=== PATIENT | female | born 1990 | race Caucasian/White ===

== ENCOUNTER 2017-12-01 08:45 | Emergency (ER) | payer MEDICAID ==
[2017-12-01] MEDS ORDERED: Bupivacaine 0.5% 10 ML SDV INJECT ONE (09:10)
--- NOTE | 2017-12-01 09:10 | EDM.PDOC ---
ED HPI GENERAL MEDICAL PROBLEM - General Chief Complaint: Skin Complaint Stated Complaint: ABCESS UNDER ARM PITS Time Seen by Provider: 12/01/17 08:47 Source of Information: Reports: Patient History Limitations: Reports: No Limitations - History of Present Illness INITIAL COMMENTS - FREE TEXT/NARRATIVE: History of present illness: []Patient has multiple lesions under both armpits and one on her neck. She admits to injecting heroin but she has not injected in over a week. She denies any shortness of breath, chest pain, fevers, chills, nausea or vomiting Review of systems: As per history of present illness and below otherwise all systems reviewed and negative. Past medical history: As per history of present illness and as reviewed below otherwise noncontributory. Surgical history: As per history of present illness and as reviewed below otherwise noncontributory. Social history: No reported history of drug or alcohol abuse. Family history: As per history of present illness and as reviewed below otherwise noncontributory. Physical exam: General: Well developed, well nourished in NAD HEENT: Atraumatic, normocephalic, pupils reactive, negative for conjunctival pallor or scleral icterus, mucous membranes moist, throat clear, neck supple, right neck has track tabor and area of superficial erythema, tenderness over the external jugular, nontender, trachea midline. Lungs: Clear to auscultation, breath sounds equal bilaterally, chest nontender. Heart: S1S2, regular, negative for clicks, no audible murmurs noted Abdomen: Soft, nondistended, nontender. Negative for masses or hepatosplenomegaly. Negative for costovertebral tenderness. Pelvis: Stable nontender. Genitourinary: Deferred. Rectal: Deferred. Extremities: Bilateral axilla have multiple lesions of varying size that have induration, erythema and tenderness. The right axilla lesions show no signs of fluctuance the left axilla has one lesion approximately 3 cm x 3 cm that is erythematous and fluctuant. negative for cords or calf pain. Neurovascular unremarkable. Neuro: Awake, alert, oriented. Cranial nerves II through XII unremarkable. Cerebellum unremarkable. Motor and sensory unremarkable throughout. Exam nonfocal. Diagnostics: [] Therapeutics: []I&D left axillary abscess Impression: []IVDA, heroin abuse, multiple skin abscesses Plan: []Bactrim twice a day, diclofenac follow-up with PMD Definitive disposition and diagnosis as appropriate pending reevaluation and review of above. bialteral axillia Pain Score (Numeric/FACES): 5 - Related Data Allergies Allergy/AdvReac Type Severity Reaction Status Date / Time No Known Allergies Allergy Verified 12/01/17 08:56 Home Meds: Home Meds Diclofenac Sodium [Voltaren] 75 mg PO BIDMEALS PRN #20 tab.cr 12/01/17 [Rx] Dicloxacillin 500 mg PO QID #40 cap 12/01/17 [Rx] Sulfamethoxazole/Trimethoprim [Bactrim Ds Tablet] 1 each PO BID #20 tablet 12/01 [Rx] Past Medical History HEENT History: Reports: None Cardiovascular History: Reports: None Respiratory History: Reports: None Gastrointestinal History: Reports: None Genitourinary History: Reports: None 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: Musculoskeletal History: Reports: None Neurological History: Reports: None Psychiatric History: Reports: None Endocrine/Metabolic History: Reports: None Hematologic History: Reports: None Immunologic History: Reports: None Oncologic (Cancer) History: Reports: None Dermatologic History: Reports: Other (See Below) Other Dermatologic History: abscess - Infectious Disease History Infectious Disease History: Reports: Chicken Pox - Past Surgical History Head Surgeries/Procedures: Reports: None HEENT Surgical History: Reports: None Cardiovascular Surgical History: Reports: None Respiratory Surgical History: Reports: None GI Surgical History: Reports: None Female Surgical History: Reports: Section Endocrine Surgical History: Reports: None Neurological Surgical History: Reports: None Musculoskeletal Surgical History: Reports: None Oncologic Surgical History: Reports: None Dermatological Surgical History: Reports: None Social & Family History - Family History Family Medical History: Noncontributory - Tobacco Use Smoking Status *Q: Current Every Day Smoker Years of Tobacco use: 2 Packs/Tins Daily: 0.5 - Caffeine Use Caffeine Use: Reports: Soda - Recreational Drug Use Recreational Drug Use: No ED ROS GENERAL - Review of Systems Review Of Systems: ROS reveals no pertinent complaints other than HPI. ED EXAM, SKIN/RASH Exam: See Below (See history of present illness) Course - Vital Signs Last Recorded V/S: Last Vital Signs Temp 98.5 F 12/01/17 08:57 Pulse 100 12/01/17 08:57 Resp 18 12/01/17 08:57 BP 120/76 12/01/17 08:57 Pulse Ox 96 12/01/17 08:57 - Orders/Labs/Meds Meds: Medications Discontinued Medications Generic Name Dose Route Start Last Admin Trade Name Heavenly PRN Reason Stop Dose Admin Bupivacaine HCl 10 ml 12/01/17 09:10 12/01/17 09:16 Sensorcaine-Mpf 0.5% INJECT 12/01/17 09:11 10 ml ONETIME ONE Administration Lidocaine HCl 5 ml 12/01/17 09:10 12/01/17 09:16 Xylocaine-Mpf 1% INJECT 12/01/17 09:11 5 ml ONETIME ONE Administration Departure - Departure Time of Disposition: 09:36 Disposition: Home, Self-Care 01 Condition: Good Clinical Impression: Hidradenitis suppurativa of left axilla, Hidradenitis suppurativa of right axilla, Heroin abuse, Intravenous drug abuse Clinical Impression: (Ruled Out): IVDA (intravenous drug abuse) complicating - Discharge Information *PRESCRIPTION DRUG MONITORING PROGRAM REVIEWED*: No Prescriptions: Diclofenac Sodium [Voltaren] 75 mg PO BIDMEALS PRN #20 tab.cr PRN Reason: Pain Dicloxacillin 500 mg PO QID #40 cap Sulfamethoxazole/Trimethoprim [Bactrim Ds Tablet] 1 each PO BID #20 tablet Referrals: PCP,None [Primary Care Provider] - Forms: ED Department Discharge Additional Instructions: The following information is given to patients seen in the emergency department who are being discharged to home. This information is to outline your options for follow-up care. We provide all patients seen in our emergency department with a follow-up referral. The need for follow-up, as well as the timing and circumstances, are variable depending upon the specifics of your emergency department visit. If you don't have a primary care physician on staff, we will provide you with a referral. We always advise you to contact your personal physician following an emergency department visit to inform them of the circumstance of the visit and for follow-up with them and/or the need for any referrals to a consulting specialist. The emergency department will also refer you to a specialist when appropriate. This referral assures that you have the opportunity for follow-up care with a specialist. All of these measure are taken in an effort to provide you with optimal care, which includes your follow-up. Under all circumstances we always encourage you to contact your private physician who remains a resource for coordinating your care. When calling for follow-up care, please make the office aware that this follow-up is from your recent emergency room visit. If for any reason you are refused follow-up, please contact the [facility] Emergency Department at and asked to speak to the emergency department charge nurse. Take all meds as directed low up with general surgery and/or primary care return if symptoms worsen or change [facility] [address] [place] [id number] [facility] - General Surgery Professional Building [address] [place] [address], [address] [place] [address]
== END 2017-12-01 10:05 | disposition home or self-care (01) ==
LOC: MW.ED 08:45
DX: L73.2 Hidradenitis suppurativa (principal); F11.10 Opioid abuse, uncomplicated; F17.210 Nicotine dependence, cigarettes, uncomplicated; F19.10 Other psychoactive substance abuse, uncomplicated; Z79.899 Other long term (current) drug therapy
CPT/HCPCS: 10060; 99283; J3490

== ENCOUNTER 2017-12-12 14:18 | Emergency (ER) | payer MEDICAID ==
--- NOTE | 2017-12-12 14:30 | EDM.PDOC ---
ED HPI GENERAL MEDICAL PROBLEM - General Chief Complaint: Gastrointestinal Problem Stated Complaint: VOMITING Time Seen by Provider: 12/12/17 14:24 Source of Information: Reports: Patient History Limitations: Reports: No Limitations - History of Present Illness INITIAL COMMENTS - FREE TEXT/NARRATIVE: HISTORY AND PHYSICAL: History of present illness: Patient is a 26-year-old female who presents to the emergency room today with complaints of lower abdominal pain, nausea, and vomiting over the past 24 hours. It's last week she was placed on oral antibiotics for dental abscess and believes this could be contributing to her symptoms. Denies any fever, chills, chest pain, or shortness of breath. Denies any constipation, diarrhea or dysuria. Reports she does have history of gastroparesis and colitis. No blood noted in urine or stools. Last menstrual period 11/28/2017 Review of systems: As per history of present illness and below otherwise all systems reviewed and negative. Past medical history: As per history of present illness and as reviewed below otherwise noncontributory. Surgical history: As per history of present illness and as reviewed below otherwise noncontributory. Social history: No reported history of drug or alcohol abuse. Family history: As per history of present illness and as reviewed below otherwise noncontributory. Physical exam: General: Well-developed and well-nourished 26-year-old female. Alert and oriented. Nontoxic appearing and in no acute distress HEENT: Atraumatic, normocephalic, pupils equal and reactive bilaterally, negative for conjunctival pallor or scleral icterus, mucous membranes moist, throat clear, neck supple, nontender, trachea midline. No drooling or trismus noted. No meningeal signs Lungs: Clear to auscultation, breath sounds equal bilaterally, chest nontender. Heart: S1S2, regular rate and rhythm without overt murmur Abdomen: Soft, nondistended, left and right lower quadrant tenderness. Negative for masses or hepatosplenomegaly. Negative for costovertebral tenderness. Pelvis: Stable nontender. Genitourinary: Deferred. Rectal: Deferred. Skin: Intact, warm, dry. No lesions or rashes noted. Extremities: Atraumatic, negative for cords or calf pain. Neurovascular unremarkable. Neuro: Awake, alert, oriented. Cranial nerves II through XII unremarkable. Cerebellum unremarkable. Motor and sensory unremarkable throughout. Exam nonfocal. Notes: Patient reports she still has some abdominal pain and is requesting something for heartburn at this time. We'll give her a GI cocktail, waiting for a urinalysis to perform the CT scan. Vital signs are stable. CT shows no acute abnormalities. Patient still continues to have nausea, pain has improved. We'll give her Phenergan IM. Plan for discharge. She is agreeable to plan of care and denies any further questions or concerns at this time. Diagnostics: CBC, CMP, UA, HCGU, CT abdomen/pelvis Therapeutics: Normal Saline, Zofran, Toradol, Phenergan IM Prescription: Zofran Omeprozole Impression: Abdominal Pain Plan: 1. Millard diet for the next 24-48 hours, advance as tolerated. Small frequent sips of fluids to prevent dehydration. 2. Take the prescriptions as directed. 3. Follow-up with your primary caregiver in the next 1-2 weeks. Return to the ED as needed and as discussed. Definitive disposition and diagnosis as appropriate pending reevaluation and review of above. Duration: Day(s): Location: Reports: Abdomen lower abdomen Pain Score (Numeric/FACES): 6 - Related Data Allergies Allergy/AdvReac Type Severity Reaction Status Date / Time No Known Allergies Allergy Verified 12/12/17 14:24 Home Meds: Home Meds Diclofenac Sodium [Voltaren] 75 mg PO BIDMEALS PRN #20 tab.cr 12/01/17 [Rx] Dicloxacillin 500 mg PO QID #40 cap 12/01/17 [Rx] Sulfamethoxazole/Trimethoprim [Bactrim Ds Tablet] 1 each PO BID #20 tablet 12/01 [Rx] Omeprazole 20 mg PO DAILY #20 cap.sr 12/12/17 [Rx] Ondansetron [Zofran ODT] 4 mg PO Q6H PRN #8 tab.dis 12/12/17 [Rx] Past Medical History HEENT History: Reports: None Cardiovascular History: Reports: None Respiratory History: Reports: None Gastrointestinal History: Reports: None Genitourinary History: Reports: None 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: Musculoskeletal History: Reports: None Neurological History: Reports: None Psychiatric History: Reports: None Endocrine/Metabolic History: Reports: None Hematologic History: Reports: None Immunologic History: Reports: None Oncologic (Cancer) History: Reports: None Dermatologic History: Reports: Other (See Below) Other Dermatologic History: abscess - Infectious Disease History Infectious Disease History: Reports: Chicken Pox - Past Surgical History Head Surgeries/Procedures: Reports: None HEENT Surgical History: Reports: None Cardiovascular Surgical History: Reports: None Respiratory Surgical History: Reports: None GI Surgical History: Reports: None Female Surgical History: Reports: Section Endocrine Surgical History: Reports: None Neurological Surgical History: Reports: None Musculoskeletal Surgical History: Reports: None Oncologic Surgical History: Reports: None Dermatological Surgical History: Reports: None Social & Family History - Family History Family Medical History: Noncontributory - Tobacco Use Smoking Status *Q: Current Every Day Smoker Years of Tobacco use: 2 Packs/Tins Daily: 0.4 - Caffeine Use Caffeine Use: Reports: Soda - Recreational Drug Use Recreational Drug Use: Yes Recreational Drug Type: Reports: Marijuana/Hashish Recreational Drug Use Frequency: Daily ED ROS GENERAL - Review of Systems Review Of Systems: ROS reveals no pertinent complaints other than HPI. ED EXAM, GI/ABD - Physical Exam Exam: See Below (See dictation) Course - Vital Signs Last Recorded V/S: Last Vital Signs Temp 97.1 F 12/12/17 14:24 Pulse 92 12/12/17 14:24 Resp 18 12/12/17 14:24 BP 123/87 12/12/17 14:24 Pulse Ox 95 12/12/17 14:24 - Orders/Labs/Meds Orders: Active Orders 24 hr Category Date Time Status Abdomen Pelvis w Cont [CT] Stat Exams 12/12/17 14:37 Taken HCG QUALITATIVE,URINE [URCHEM] Stat Lab 12/12/17 15:51 Ordered UA W/MICROSCOPIC [URIN] Stat Lab 12/12/17 15:51 Ordered Promethazine [Phenergan] Med 12/12/17 16:57 Once 12.5 mg IM ONETIME ONE Labs: Laboratory Tests 12/12/17 12/12/17 12/12/17 Range/Units 14:50 14:50 15:51 WBC 9.87 (4.0-11.0) K/uL RBC 4.80 (4.30-5.90) M/uL Hgb 14.0 (12.0-16.0) g/dL Hct 41.3 (36.0-46.0) % MCV 86.0 (80.0-98.0) fL MCH 29.2 (27.0-32.0) pg MCHC 33.9 (31.0-37.0) g/dL RDW Std Deviation 42.1 (28.0-62.0) fl RDW Coeff of Rachel 14 (11.0-15.0) % Plt Count 473 H (150-400) K/uL MPV 9.20 (7.40-12.00) fL Neut % (Auto) 65.8 (48.0-80.0) % Lymph % (Auto) 29.1 (16.0-40.0) % Billings % (Auto) 3.7 (0.0-15.0) % Eos % (Auto) 1.1 (0.0-7.0) % Baso % (Auto) 0.3 (0.0-1.5) % Neut # (Auto) 6.5 H (1.4-5.7) K/uL Lymph # (Auto) 2.9 H (0.6-2.4) K/uL Billings # (Auto) 0.4 (0.0-0.8) K/uL Eos # (Auto) 0.1 (0.0-0.7) K/uL Baso # (Auto) 0.0 (0.0-0.1) K/uL Nucleated RBC % 0.0 /100WBC Nucleated RBCs # 0 K/uL Sodium 142 (136-145) mmol/L Potassium 4.5 (3.5-5.1) mmol/L Chloride 104 (98-107) mmol/L Carbon Dioxide 27.0 (21.0-32.0) mmol/L BUN 18 (7.0-18.0) mg/dL Creatinine 0.8 (0.6-1.0) mg/dL Est Cr Clr Drug Dosing 90.41 mL/min Estimated GFR (MDRD) > 60.0 ml/min Glucose 120 H (74-106) mg/dL Calcium 9.9 (8.5-10.1) mg/dL Total Bilirubin 0.2 (0.2-1.0) mg/dL AST 15 (15-37) IU/L ALT 36 (14-63) IU/L Alkaline Phosphatase 139 H (46-116) U/L Total Protein 8.4 H (6.4-8.2) g/dL Albumin 4.0 (3.4-5.0) g/dL Globulin 4.4 H (2.0-3.5) g/dL Albumin/Globulin Ratio 0.9 L (1.3-2.8) Urine Color YELLOW Urine Appearance CLEAR Urine pH 7.0 (5.0-8.0) Ur Specific Laurel 1.025 (1.001-1.035) Urine Protein TRACE (NEGATIVE) mg/dL Urine Glucose (UA) NEGATIVE (NEGATIVE) mg/dL Urine Ketones NEGATIVE (NEGATIVE) mg/dL Urine Occult Blood NEGATIVE (NEGATIVE) Urine Nitrite NEGATIVE (NEGATIVE) Urine Bilirubin NEGATIVE (NEGATIVE) Urine Urobilinogen 0.2 (<2.0) EU/dL Ur Leukocyte Esterase NEGATIVE (NEGATIVE) Urine RBC 0-1 (0-2/HPF) Urine WBC 0-1 (0-5/HPF) Ur Epithelial Cells MODERATE (NONE-FEW) Urine Bacteria RARE (NEGATIVE) Urine Mucus LIGHT (NONE-MOD) Urine HCG, Qual (NEGATIVE) 12/12/17 Range/Units 15:51 WBC (4.0-11.0) K/uL RBC (4.30-5.90) M/uL Hgb (12.0-16.0) g/dL Hct (36.0-46.0) % MCV (80.0-98.0) fL MCH (27.0-32.0) pg MCHC (31.0-37.0) g/dL RDW Std Deviation (28.0-62.0) fl RDW Coeff of Rachel (11.0-15.0) % Plt Count (150-400) K/uL MPV (7.40-12.00) fL Neut % (Auto) (48.0-80.0) % Lymph % (Auto) (16.0-40.0) % Billings % (Auto) (0.0-15.0) % Eos % (Auto) (0.0-7.0) % Baso % (Auto) (0.0-1.5) % Neut # (Auto) (1.4-5.7) K/uL Lymph # (Auto) (0.6-2.4) K/uL Billings # (Auto) (0.0-0.8) K/uL Eos # (Auto) (0.0-0.7) K/uL Baso # (Auto) (0.0-0.1) K/uL Nucleated RBC % /100WBC Nucleated RBCs # K/uL Sodium (136-145) mmol/L Potassium (3.5-5.1) mmol/L Chloride (98-107) mmol/L Carbon Dioxide (21.0-32.0) mmol/L BUN (7.0-18.0) mg/dL Creatinine (0.6-1.0) mg/dL Est Cr Clr Drug Dosing mL/min Estimated GFR (MDRD) ml/min Glucose (74-106) mg/dL Calcium (8.5-10.1) mg/dL Total Bilirubin (0.2-1.0) mg/dL AST (15-37) IU/L ALT (14-63) IU/L Alkaline Phosphatase (46-116) U/L Total Protein (6.4-8.2) g/dL Albumin (3.4-5.0) g/dL Globulin (2.0-3.5) g/dL Albumin/Globulin Ratio (1.3-2.8) Urine Color Urine Appearance Urine pH (5.0-8.0) Ur Specific Laurel (1.001-1.035) Urine Protein (NEGATIVE) mg/dL Urine Glucose (UA) (NEGATIVE) mg/dL Urine Ketones (NEGATIVE) mg/dL Urine Occult Blood (NEGATIVE) Urine Nitrite (NEGATIVE) Urine Bilirubin (NEGATIVE) Urine Urobilinogen (<2.0) EU/dL Ur Leukocyte Esterase (NEGATIVE) Urine RBC (0-2/HPF) Urine WBC (0-5/HPF) Ur Epithelial Cells (NONE-FEW) Urine Bacteria (NEGATIVE) Urine Mucus (NONE-MOD) Urine HCG, Qual NEGATIVE (NEGATIVE) Meds: Medications Discontinued Medications Generic Name Dose Route Start Last Admin Trade Name Freq PRN Reason Stop Dose Admin Al Hydroxide/Mg Hydroxide 15 0 ml 12/12/17 15:49 12/12/17 15:59 ml/ Metoclopramide HCl 5 mg/ PO 12/12/17 15:50 1 each Lidocaine HCl 5 ml ONETIME ONE Administration Sodium Chloride 1,000 mls @ 999 mls/hr 12/12/17 14:28 12/12/17 14:51 Normal Saline IV 08/15/18 15:28 999 mls/hr STAT ONE Administration Iopamidol 80 ml 12/12/17 16:30 12/12/17 16:30 Isovue Multipack-370 (76%) IVPUSH 12/12/17 16:31 80 ml ONETIME ONE Administration Ketorolac Tromethamine 30 mg 12/12/17 14:28 12/12/17 14:53 Toradol IVPUSH 12/12/17 14:29 30 mg ONETIME ONE Administration Ondansetron HCl 4 mg 12/12/17 14:28 12/12/17 14:52 Zofran IVPUSH 12/12/17 14:29 4 mg ONETIME ONE Administration Departure - Departure Time of Disposition: 17:01 Disposition: Home, Self-Care 01 Clinical Impression: Abdominal pain - Discharge Information Prescriptions: Omeprazole 20 mg PO DAILY #20 cap.sr Ondansetron [Zofran ODT] 4 mg PO Q6H PRN #8 tab.dis PRN Reason: Nausea Instructions: Abdominal Pain, Adult Referrals: PCP,None [Primary Care Provider] - Forms: ED Department Discharge Additional Instructions: The following information is given to patients seen in the emergency department who are being discharged to home. This information is to outline your options for follow-up care. We provide all patients seen in our emergency department with a follow-up referral. The need for follow-up, as well as the timing and circumstances, are variable depending upon the specifics of your emergency department visit. If you don't have a primary care physician on staff, we will provide you with a referral. We always advise you to contact your personal physician following an emergency department visit to inform them of the circumstance of the visit and for follow-up with them and/or the need for any referrals to a consulting specialist. The emergency department will also refer you to a specialist when appropriate. This referral assures that you have the opportunity for follow-up care with a specialist. All of these measure are taken in an effort to provide you with optimal care, which includes your follow-up. Under all circumstances we always encourage you to contact your private physician who remains a resource for coordinating your care. When calling for follow-up care, please make the office aware that this follow-up is from your recent emergency room visit. If for any reason you are refused follow-up, please contact the [facility] Emergency Department at and asked to speak to the emergency department charge nurse. [facility] [address] [place] [id number] 1. Millard diet for the next 24-48 hours, advance as tolerated. Small frequent sips of fluids to prevent dehydration. 2. Take the prescriptions as directed. 3. Follow-up with your primary caregiver in the next 1-2 weeks. Return to the ED as needed and as discussed. - My Orders Last 24 Hours: My Active Orders 12/12/17 14:37 Abdomen Pelvis w Cont [CT] Stat 12/12/17 15:51 HCG QUALITATIVE,URINE [URCHEM] Stat UA W/MICROSCOPIC [URIN] Stat 12/12/17 16:57 Promethazine [Phenergan] 12.5 mg IM ONETIME ONE - Assessment/Plan Last 24 Hours: My Active Orders 12/12/17 14:37 Abdomen Pelvis w Cont [CT] Stat 12/12/17 15:51 HCG QUALITATIVE,URINE [URCHEM] Stat UA W/MICROSCOPIC [URIN] Stat 12/12/17 16:57 Promethazine [Phenergan] 12.5 mg IM ONETIME ONE
[2017-12-12] MEDS: Sodium Chloride 0.9% 1,000 ML IV ONE (14:51)
[2017-12-12] MEDS: Ondansetron 4 MG/2 ML SDV IVPUSH ONE (14:52)
[2017-12-12] MEDS: Ketorolac 30 MG/ML SDV IVPUSH ONE (14:53)
[2017-12-12 15:43] LABS: CHLORIDE,CL 104 mmol/L (98-107); SODIUM,NA 142 mmol/L (136-145)
[2017-12-12] MEDS: Alum Hydrox/Mag Hydrox/Simeth 15 ML, Metoclopramide 5 MG, Lidocaine 2% 5 ML PO ONE ×3 (15:59)
[2017-12-12] MEDS: Iopamidol 755 MG/ML 200 ML Multipack Bottle IVPUSH ONE (16:30)
[2017-12-12] MEDS: Promethazine 25 MG/ML SDV IM ONE (17:11)
--- NOTE | 2017-12-13 09:44 | CT ---
EXAM DATE: 12/12/17 PATIENT'S AGE: 26 Patient: ANDRIA GONSALES Facility: [place], [place] Site . Site : [id number] Study: CT Abdomen/Pelvis w cont [id number] 4:36:19 PM Ordering Physician: Doctor Chinchilla Final Report: INDICATION: PT STATES LOWER ABDOMINAL PAIN FOR OVER 24 HOURS WITH IT WORSENING. N/V/D. PT STATES DIAGNOSED WITH ABSCESS 1 WEEK AGO AND GOT ANTIBIOTICS AT THE TIME. CT ABDOMEN AND PELVIS WITH CONTRAST TECHNIQUE: Multidetector CT imaging was performed through the abdomen and pelvis following intravenous contrast administration using 80mL Isovue 370. Coronal and sagittal reconstructions were generated. COMPARISON: None. FINDINGS: Included portions of the lower chest show the lung bases to be clear. The liver, spleen, gallbladder, pancreas, adrenals, and kidneys show no significant findings. Bowel loops are of normal caliber and demonstrate no definite wall thickening. The appendix is normal. No free fluid or free air is identified. The abdominal aorta appears normal in caliber. No abnormally enlarged lymph nodes are seen. The urinary bladder, uterus, ovaries, and adnexal regions are within normal limits. Visualized bones show no acute findings. IMPRESSION: No acute abnormality identified. No cause for the patient`s symptoms is evident. LAURE LOCKETT MD [employer] Dictated by: Mahesh Lockett MD @ 12/12/2017 16:54:56 (Electronic Signature) Report Signed by Proxy. [facility]ENTERMary
== END 2017-12-12 17:31 | disposition home or self-care (01) ==
LOC: MW.ED 14:18
DX: R10.30 Lower abdominal pain, unspecified (principal); Z79.899 Other long term (current) drug therapy
CPT/HCPCS: 36415; 74177; 80053; 81001; 81025; 85025; 96361; 96372; 96374; 96375; 99284; A9270; J1885; J2405; J2550; J7040; Q9967; 99283